=== PATIENT | male | born 1960 | race Caucasian/White ===

== ENCOUNTER 2018-08-13 19:57 | Emergency (ER) | payer MEDICAID ==
[~2018-08-13] VITALS: Ht 170.2 cm; Wt 74.4 kg
[2018-08-13 20:13] VITALS: Ht 170.2 cm; Wt 74.4 kg
[2018-08-13 22:47] VITALS: BP 1435/81
== END 2018-08-13 22:47 | disposition home or self-care (01) ==
LOC: ED 19:57
DX: J02.9 Acute pharyngitis, unspecified (principal); I88.9 Nonspecific lymphadenitis, unspecified
CPT/HCPCS: J1100; J8540